=== PATIENT | male | born 1985 | race Caucasian/White ===

== ENCOUNTER → 2017-01-09 | Outpatient (CLI) | payer OTHER ==
[~2017-01-09] MED LIST: ASPIRIN 32325 MG/TAB PO; CORDARONE200 MG/TAB PO; LEVAQUIN 750MG750 M1 PO; NICODERM C14 MG/PATC TD; NORVASC 10MG10 MG PO; PERCOCET 325 MG1 TA2 PO; PRIL40 PO
== END ==
LOC: COL.VAS 13:19
DX: M79.604 Pain in right leg (principal)

== ENCOUNTER → 2017-01-31 | Outpatient (REF) | LOC: WSOH 16:45 | DX: Z02.89 Encounter for other administrative examinations (principal) ==

== ENCOUNTER → 2020-10-30 | Outpatient (CLI) | payer BC | LOC: COL.RAD 11:09 | DX: S62.306A Unspecified fracture of fifth metacarpal bone, right hand, initial encounter for closed fracture (principal) ==